=== PATIENT | female | born 1975 | race Caucasian/White ===

== ENCOUNTER → 2022-10-21 15:16 | Outpatient (CLI) | payer OTHER, SELFPAY ==
--- NOTE | 2022-10-21 13:15 | DI.RAD_ITS ---
Exam(s) XR ANKLE LT COMPLETE EXAM: XR ANKLE LT COMPLETE CLINICAL HISTORY: left ankle pain, fall M25.572 PAIN LEFT ANKLE. TECHNIQUE: 2D digital imaging was performed. COMPARISON: No exams were available for comparison FINDINGS: 3 views No evidence of fracture or widening of the ankle. Talar dome unremarkable. No prominent soft tissue swelling. 5th metatarsal base intact. Bone density normal. No osseous lesions No evidence of osseous tarsal coalition. IMPRESSION: No ankle fracture evident. DATA REPOSITORY: RADIATION DOSE DELIVERED:
--- NOTE | 2022-10-21 13:15 | DI.RAD_ITS ---
Exam(s) XR KNEE LT 3V AP,LAT,BECCA EXAM: XR KNEE LT 3V AP,LAT,BECCA CLINICAL HISTORY: knee pain, fall M25.562 PAIN LEFT KNEE. TECHNIQUE: 2D digital imaging was performed. COMPARISON: No exams were available for comparison FINDINGS: 3 views No evidence of acute fracture but there is joint effusion evident. No obvious degenerative changes. Bone density normal. No osseous lesions. IMPRESSION: No osseous findings but there is a joint effusion. This may signify significant internal derangement . DATA REPOSITORY: RADIATION DOSE DELIVERED:
== END ==
PROVIDERS: Visit Provider Physician Assistant
DX: M25.562 Pain in left knee (principal); M25.572 Pain in left ankle and joints of left foot; W19.XXXA Unspecified fall, initial encounter
CPT/HCPCS: 73562; 73610

== ENCOUNTER → 2022-11-05 01:06 | Outpatient (CLI) | payer OTHER, SELFPAY ==
--- NOTE | 2022-11-05 16:05 | DI.MRI_ITS ---
Exam(s) MR LOWER JOINT LT WO EXAM: MR LOWER JOINT LT WO CLINICAL HISTORY: PAIN, INJURY,INTERNAL DERANGEMENT,M23.92,S89.92XA. TECHNIQUE: Multiplanar multisequence MRI was performed. COMPARISON: CR XR KNEE LT 3V AP,LAT,BECCA from 10/21/2022 FINDINGS: BONES: Contusion lateral tibial plateau and small portion of the posterior aspect of the medial tibia l plateau. Contusion of the medial aspect of the medial femoral condyle. JOINTS: A large joint effusion is present. Articular cartilage: Patellofemoral joint: Articular cartilage is unremarkable. Medial femoral tibial joint: Roughly 5 millimeter in size defect in the cartilage of the medial aspe ct of the medial tibial plateau with underlying edema. Other smaller and focal cartilage defects of the posterior aspect of the medial femoral condyle. Lateral femoral tibial joint: Articular cartilage is unremarkable. TENDONS: Extensor mechanism: Unremarkable. Medial retinaculum: Unremarkable. Lateral retinaculum: Unremarkable. Popliteus: Unremarkable. MUSCLES: Unremarkable. MENISCI: The complex tear of the medial meniscus with some blunting of the apex of the posterior horn and bucket-handle type fragment displaced medially.. The lateral meniscus is unremarkable. SOFT TISSUES: Unremarkable. LIGAMENTS: Anterior Cruciate: Full-thickness tear. The tibia is located anteriorly with respect to the femur. Posterior Cruciate: Unremarkable. Medial Collateral:Mild surrounding edema but no visible tear. Lateral Collateral: Mild surrounding edema but no visible tear. IMPRESSION: Full-thickness ACL tear. Bucket-handle type tear of the posterior horn of the medial meniscus. Contusions of the medial femoral condyle lateral tibial plateau. Of focal chondral defect of the med ial femoral condyle. DATA REPOSITORY:
== END ==
PROVIDERS: Visit Provider Student in an Organized Health Care Education/Training Program
DX: M23.611 Other spontaneous disruption of anterior cruciate ligament of right knee (principal); S83.212A Bucket-handle tear of medial meniscus, current injury, left knee, initial encounter; X58.XXXA Exposure to other specified factors, initial encounter
CPT/HCPCS: 73721

== ENCOUNTER 2024-07-13 18:25 | Emergency (ER) | payer OTHER, SELFPAY ==
[2024-07-13 18:29] VITALS: BP 170/109; PULSE 111; RESP 20; TEMP 36.4; O2SAT 98
--- NOTE | 2024-07-13 19:04 | ED.GENADUL_ITS ---
Discharge Plan Disposition Patient Disposition: Home Condition: Stable Discharge Details Clinical Impression: Deep vein thrombosis (DVT) of left lower extremity Primary Care Provider: Haydee Kapoor ED Provider: Vandana Crawford Home Meds and New Rx's Prescriptions: New Eliquis DVT-PE Treat 30D Start 5 mg (74 tabs) tablets,dose pack See Rx Instructions .ROUTE .COMPLEX Qty: 74 0RF Rx Instructions: orally per package directions. Take 10mg twice a day for the first week, then 5mg twice a day No Action desogestrel-ethinyl estradiol [Enskyce] 0.15-0.03 mg tablet 1 tab PO DAILY triamcinolone acetonide 0.1 % cream 1 applic TOPICAL DAILY PRN (Reason: pain) lidocaine 5 % adhesive patch,medicated 1 patch transdermal Q24H PRN Discharge Instructions Instructions: Deep Vein Thrombosis (DVT) ED Additional Instructions: You were seen in the emergency department today for evaluation of calf swelling and were found to have noncompressible veins of your left lower extremity, concerning for DVT. In our department you had a full physical examination performed, and you had laboratory studies that showed an elevation in your D- dimer, a laboratory test that checks for blood clots. You also had a slight elevation in your white blood cell count, your electrolytes look normal. I am most concerned for a blood clot in your leg, and we have started you on a medication called apixaban (Brand name Eliquis). You will take 10 mg twice a day for the first week, and then transition to a 5 mg twice a day dosing. For provoked DVTs (meaning DVTs that occurred because of reasons such as hormonal bi rth control and decreased activity) most people are on this medication for approximately 3 months. Your primary care will follow your blood clot and make the decision whether to stop or continue the medication. You need to return to the hospital within the next 3 days for a formal ultrasound, this has been ordered. If you do not hear from them to schedule, please call [phone]. While on Eliquis, you need to avoid activities that may cause you injury, as your risk of bleeding is much higher. If you do strike your head, you need to come to the emergency department for an evaluation. Please avoid biking, climbing, but it is okay to walk and move your body in safer ways. You can continue to use your lidocaine patches and Tylenol but should avoid NSAIDs such as ibuprofen, aspirin, and naproxen. Please avoid massage or manipulation of the left leg. Please follow-up with your primary care provider in the next few days to discuss this visit and any symptoms that change, worsen, or persist. Thank you for allowing us to be part of your care. Discharge Orders Other Ambulatory Orders: US lower extremity venous LT (Routine) Timeframe: 3 Days Facility: [facility] - Location: DIAGNOSTIC IMAGING Ordered By: Vandana Crawford HPI General Mode of arrival: ambulatory . Date/Time Provider Initiated Documentation: 07/13/24 18:31 . HPI Narrative: This is a 49-year-old female patient with a past medical history significant for left knee surgery in 2022, recent steroid injections in her bilateral hips and PT for her IT band dysfunction, presenting for evaluation of swelling of the left With stiffness and tenderness. She reports that yesterday she noticed that her leg was swollen, it felt very stiff and uncomfortable. She did not sustain any injury to the area. She did have an injury to her left hip recently, and has not been as active as typical. She takes oral contraceptives. She has never had a blood clot before but is concerned for 1 today. No recent travel or extended sedentary time. This weekend she had the sensation that her heart was racing, and she felt short of breath, states that this has now resolved. Related Data Home Medications ?Medication ?Instructions ?Recorded ?Confirmed apixaban 5 mg (74 tabs) tablets in See Rx Instructions PO .COMPLEX 07/13/24 a dose pack (Eliquis DVT-PE Treat #74 dose pk 30D Start) desogestrel 0.15 mg-ethinyl 1 tab PO DAILY 07/13/24 07/13/24 estradiol 0.03 mg tablet (Enskyce) lidocaine 5 % topical patch 1 patch transdermal Q24H PRN 07/13/24 07/13/24 triamcinolone acetonide 0.1 % 1 applic topical DAILY PRN pain 07/13/24 07/13/24 topical cream Previous Rx's ?Medication ?Instructions ?Recorded apixaban 5 mg (74 tabs) tablets in See Rx Instructions PO .COMPLEX 07/13/24 a dose pack (Eliquis DVT-PE Treat #74 dose pk 30D Start) Allergies Allergy/AdvReac Type Severity Reaction Status Date / Time latex Allergy Unknown Skin Rash Verified 07/13/24 18:35 General Stated Complaint: Vascular ELIZABETH: 3 Exam Narrative Exam Narrative: Gen: awake and alert, in no apparent distress. Appears well nourished. HEENT: PERRL. External ears and nose normal, mucous membranes moist. Neck: Supple, full range of motion, no observable masses Lungs: No increased work of breathing, lung sounds clear and equal bilaterally without wheezes, rhonchi, or rales. CV: Heart with tachycardic rate but regular rhythm, no murmurs auscultated. Strong and symmetrical radial pulses. Abdomen: Soft, nondistended, non-tender MSK: No joint swelling, no redness. Full ROM without limitation, no external traumatic findings. The patient does have swelling of her left lower extremity, 35 and half centimeters at the left calf compared to 34 cm at the unaffected right calf. Strong DP pulses, no sensory loss. Some calf tenderness to palpation. Skin: No rashes or lesions to visualized skin. Normal color, warm, and dry. Neuro: Symmetrical facies and clear speech. 5/5 strength in all muscle groups x4 extremities. No sensory deficits. Ambulates with steady gait. Psych: Appropriate for situation. Course Vital Signs Vital signs: Vital Signs Temperature 36.4 C L 07/13/24 18:29 Pulse 111 H 07/13/24 18:29 Respiratory Rate 20 07/13/24 18:29 Blood Pressure 170/109 H 07/13/24 18:29 Pulse Oximetry 98 07/13/24 18:29 Temperature 36.4 C L 07/13/24 18:29 Pulse 111 H 07/13/24 18:29 Respiratory Rate 20 07/13/24 18:29 Blood Pressure 170/109 H 07/13/24 18:29 Blood Pressure Position Sitting 07/13/24 18:29 Pulse Oximetry 98 07/13/24 18:29 Oxygen Delivery Method Room Air 07/13/24 18: Oxygen Flow Rate 0 07/13/24 18:29 Medical Decision Making This is a 49-year-old female patient presenting for evaluation of left lower extremity calf swelling and tenderness. My differential includes but is not due to DVT, dependent edema, no overlying skin changes to suggest cellulitis or other infectious abnormalities. She has strong pulses and have a low concern for arterial occlusion, no neuro deficits to suggest nerve compression. This is a unilateral complaints and I have a lower concern for heart failure, nephrotic syndrome. She did have some shortness of breath and fast heart rate over the weekend, and may have some component of small pulmonary embolism, but at this time has no hypoxia, chest pain, or shortness of breath. Reassuringly, if this patient does have a component of pulmonary embolism the treatment clued remained the same. My bedside ultrasound is concerning for DVT with noncompressible left lower extremity veins, I obtained laboratory studies to include CBC, BMP, and D-dimer. -I reviewed the patient's laboratory studies, which include a white blood cell count of 14.5 but no anemia or thrombocytopenia. Chemistry panel reveals no electrolyte derangements, very slight elevation in her BUN to 27 with a near normal creatinine of 1.1, and her D-dimer is markedly elevated, greater than 7500. Given these findings, I am concerned for thromboembolic disease, specifically for DVT. The patient will be initiated on apixaban and a starter pack was sent to her pharmacy. I also ordered her for a formal ultrasound to be done in the outpatient environment. She will require close follow-up with her PCP to determine duration of anticoagulation, and I did certified addiction counselor her on return precautions, especially any sort of head trauma, development of chest pain or shortness of breath. At this time, the patient has had a full medical evaluation and is safe for discharge to home. They are hemodynamically stable, ambulatory, and tolerating PO. They are understanding of the follow-up plan and return precautions. They left our facility without incident. Vandana Crawford MD Quality:[facility] Health Related Social Needs: No Data to Display [facility] All Active Problems (Updated 07/13/24 @ 19:55 by Vandana Crawford MD) Deep vein thrombosis (DVT) of left lower extremity (Acute) Pain of knee joint with osteochondral injury (Acute) Acute medial meniscus tear of left knee (Acute) Injury of left anterior cruciate ligament (Acute) Internal derangement of left knee (Acute) Medical History Interstitial cystitis Sprain of anterior cruciate ligament of left knee described as partial tear ~2005 Social History Smoking risk assessment performed?: No Current gender identity: female PAWSS Have you Been Recently Intoxicated or Drunk Within the Last 30 days?: No Have you Ever Experienced Previous Episodes of Alcohol Withdrawal?: No Have you ever Experienced Withdrawal Seizures?: No Have you ever Experienced Delirium Tremens(DT)s?: No Have you ever undergone Alcohol Rehabilitation Treatment (i.e, inpt ot outpatient treatment programs)?: No Have you ever Experienced Blackouts?: No Have you ever Combined Alcohol with other Downers within the last 90 days?: No Have you ever Combined Alcohol with any other Substance of Abuse during the last 90 days?: No Positive Blood Alcohol level on Presentation? [PCS.BAL]: No Evidence of Increased Autonomic Activity (i.e. HR>120, tremor, sweating, agitation, nausea)?: No Result: 0 POCUS Exam (ED) Limited Vascular Exam DATE OF EXAM: 07/13/24 TIME OF EXAM: 19:04 PROVIDER THAT PERFORMED THE STUDY: Vandana Crawford IS THIS A REPEAT EXAM DURING THIS ENCOUNTER: No Vascular Exam: Left lower extremity REASON FOR EXAM: Concern for DVT left lower extremity, Left calf pain and Left lower extremity swelling/edema VISUALIZED STRUCTURES: Left common femoral vein, Left popliteal vein and Left greater saphenous vein PERTINENT FINDINGS/IMPRESSION: Non compressible veins left leg Exam Complete
[2024-07-13 19:11] LABS: Abs Immature Grans 0.06 10^3/uL (0.0-0.06); Absolute Basophil Count 0.04 10^3/uL (0.0-0.2); Absolute Lymphocyte Count 3.07 10^3/uL (1.2-3.4); Absolute Monocyte Count 0.84 10^3/uL (0.1-0.8); Absolute Neutrophil Count 10.43 10^3/uL (1.2-6.7); Basophils % 0.3 %; Eosinophils % 0.7 %; HCT 43.4 % (36.0-46.0); HGB 14.7 g/dL (11.2-15.7); Immature Grans % 0.4 %; Lymphocytes % 21.1 %; MCH 29.3 pg (27.0-33.0); MCHC 33.9 % (32.0-36.0); MCV 87 fL (80-95); MPV 9.3 fL (8.0-11.0); Monocytes % 5.8 %; Neutrophils % 71.7 %; Platelet Count 210 10^3/uL (130-400); RBC 5.01 10^6/uL (3.93-5.22); RDW 11.7 % (11.7-14.6); WBC 14.55 10^3/uL (4.4-10.8)
[2024-07-13 19:20] LABS: Anion Gap 11.6 mmol/L (3-11); BUN 27 mg/dL (7-18); CO2 24.4 mmol/L (21.0-32.0); CREATININE 1.1 mg/dL (0.55-1.02); Calcium 9.8 mg/dL (8.5-10.1); Chloride 101 mmol/L (98-107); Estimated GFR 61.22 (mL/min/1.73m2); Glucose 153 mg/dL (74-106); Potassium 4.1 mmol/L (3.5-5.1); Sodium 137 mmol/L (136-145)
[2024-07-13 19:39] LABS: D-Dimer > 7500 ng/mlFEU (<500)
[2024-07-13] MEDS: Apixaban 5 MG TAB 10 MG PO (20:13)
[2024-07-13 20:14] VITALS: BP 159/111; PULSE 105; RESP 16; O2SAT 95
== END 2024-07-13 21:28 | disposition home or self-care (01) ==
PROVIDERS: Emergency Provider Emergency Medicine; PCP Family Medicine
DX: I82.402 Acute embolism and thrombosis of unspecified deep veins of left lower extremity (principal)
CPT/HCPCS: 99284 ×2; 36415; 80048; 93971; 85025; 85379